=== PATIENT | female | born 1970 | race Caucasian/White ===

== ENCOUNTER 2016-11-27 21:51 | Emergency (ER) | payer OTHER ==
--- NOTE | 2016-11-27 21:56 | PDOC ---
History of Present Illness - General Stated Complaint: CHEST PAIN Time Seen by Provider: 11/27/16 21:53 History Source: Patient Exam Limitations: No Limitations - History of Present Illness Initial Comments: 11/27/16 22:03 This is a 46-year-old female comes in complaining of left-sided neuritic type chest pain. Patient said pain began approximately an hour ago. Patient said that she has an upper respiratory tract infection and has been doing a lot of coughing. Patient said pain is worse with a cough worse with a deep breath. Patient denies any strenuous physiological activity. Patient denies history of similar pain in the past. Patient denies any history of hypertension, high cholesterol diabetes or any other cardiac risk factors with the exception that she does have a family history in both her mother and father's side of the family. Patient also is on control. Patient denies any nausea, diaphoresis or palpitations associated with the pain. PAST MEDICAL HISTORY: no significant history PAST SURGICAL HISTORY: no significant history FAMILY HISTORY: no pertinant history SOCIAL HISTORY: Pt lives with family and is employed. MEDICATIONS: reviewed ALLERGIES: As per nursing notes Review of Systems General: No fevers or chills, no weakness, no weight loss HEENT: No change in vision. No sore throat,. No ear pain CardioVascular: + Chest pain, no shortness of breath Respiratory:No cough, or wheezing. Gastrointestinal: no nausea, vomitting, diarrhea or constipation, No rectal bleeding Genitourinary: No dysuria, hematuria, or frequency Musculoskeletal: No joint or muscle pain or swelling Neurologic: No headache, vertigo, dizziness or loss of consciousness Psychiatric: nor depression Skin: No rashes or easy bruising Endocrine: no increased thirst or abnormal weight change Allergic: no skin or latex allergy All other systems reviewed and normal Exam: General: Well-nourished well-developed individual, no acute distress HEENT: Throat: Normal, tonsils normal, no erythema or exudate Neck: Supple, no meningeal signs, no lymphadenopathy Eyes::Pupils equal reactive and round, extraocular motion intact Chest: Pain is reproduced with palpation Cardiac: S1-S2 normal, regular rate and rhythm, no murmurs rubs or gallops Respiratory: Lungs clear to auscultation bilateral Abdomen: Soft, nondistended, normal bowel sounds, nontender to palpation diffusely Extremities: Warm, dry, no cyanosis, clubbing, or edema Skin: No rashes Neuro: Alert and oriented x3, nonfocal exam, grossly intact, normal gait Psych: Normal mood and affect 11/27/16 22:05 EKG normal sinus rhythm at a rate of 76. Normal intervals no acute ST-T wave changes, normal EKG. 11/27/16 23:15 Chest x-ray no acute disease. Assessment and plan: This is a 46-year-old female comes in with pleuritic type chest pain. Patient has a cough and upper respiratory tract infection. Patient's pain is reproducible on palpation and also reproducible with inspiration. Patient's EKG is normal and her chest x-ray shows no acute disease Patient's d-dimer is negative her troponin is negative and the rest of her labs are normal. Patient's heart scores 2 Patient's pain is most likely secondary to coughing and skeletal muscle in origin or there could also be a costochondritis component to it. Patient discharged home and will follow-up with her primary care doctor. 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) Disorders: No HTN: No Hypercholesterolemia: No Liver Disease: No Seizures: No Thyroid Disease: Yes (borderline) - Surgical History Abdominal Surgery: No Appendectomy: No Cardiac Surgery: No Cholecystectomy: No Lung Surgery: No Neurologic Surgery: No Orthopedic Surgery: No - Psycho/Social/Smoking Cessation Hx Anxiety: No Suicidal Ideation: No Smoking Status: No Smoking History: Never smoked Have you smoked in the past 12 months: No Number of Cigarettes Smoked Daily: 0 Hx Alcohol Use: No Drug/Substance Use Hx: No Substance Use Type: None Hx Substance Use Treatment: No Heart Score/ECG Review - History History: Slightly suspicious - Electrocardiogram EKG: Normal - Age Age: 45-65 - Risk Factors Risk Factors Heart Score: Yes Positive family hx of cardiac disease Based on the list above the patient has:: 1-2 risk factors - Troponin Troponin: </= normal limit - Score Heart Score - Total: 2 ED Treatment Course - LABORATORY CBC & Chemistry Diagram: 11/27/16 22:00 11/27/16 22:00 *DC/Admit/Observation/Transfer Diagnosis at time of Disposition: Pleurodynia - Discharge Dispostion Disposition: HOME Condition at time of disposition: Stable - Patient Instructions Additional Instructions: Your workup was normal including your chest x-ray, EKG and blood work. Your pain is most likely secondary to coughing and skeletal muscle in nature. Take ibuprofen for your pain or Tylenol. Return to the emergency department immediately with ANY new, persistent or worsening symptoms. Continue any medications as previously prescribed by your physician. You should follow up with your primary doctor as soon as possible regarding today's emergency department visit. . Please make sure your doctor reviews the results of your emergency evaluation. Thank you for coming to the Emergency Department today for your care. It was a pleasure to see you today. Please note that your evaluation is INCOMPLETE until you follow-up with your doctor.
[2016-11-27] MEDS ORDERED: KETOROLAC TROMETHAMINE 30 MG/1 ML VIAL IVPUSH ONE (22:05)
[2016-11-27 22:12] VITALS: BP 140/82; PULSE 84; TEMP 97.6; BMI 34.4
[2016-11-27] MEDS ORDERED: KETOROLAC TROMETHAMINE 30 MG/1 ML VIAL ONE (22:15)
[2016-11-27 22:19] LABS: BASOPHIL 1.3 % (0-2.0); EOSINOPHIL 4.4 % (0-4.5); MCH 26.5 pg (25.7-33.7); MCHC 33.5 g/dl (32.0-36.0); MEAN CELL VOLUME 79.3 fl (80-96); MEAN PLT VOLUME 8.9 fl (7.5-11.1); NEUTROPHILS 63.8 % (42.8-82.8); PLATELET COUNT 303 K/MM3 (134-434); RDW 13.6 % (11.6-15.6); WHITE BLOOD COUNT 8.4 K/mm3 (4.0-10.0)
[2016-11-27 22:40] LABS: CREATININE 0.9 mg/dl (0.6-1.3); GLUCOSE,RANDOM 116 mg/dl (74-106)
[2016-11-27 22:41] LABS: ALBUMIN 3.8 g/dl (3.5-5.0); ALK PHOS 72 U/L (32-92); ANION GAP 9 (8-16); BILIRUBIN,TOTAL 0.6 mg/dl (0.2-1.0); CO2 24 mmol/L (22-28); CPK(DFH) 57 IU/L (26-140); SGOT/AST 34 U/L (10-42); SGPT/ALT 33 U/L (10-40); TOT PROT 6.8 g/dl (6.4-8.3)
[2016-11-27 23:11] LABS: TROPONIN I (DFP) < 0.03 ng/ml (0.03-0.50)
--- NOTE | 2016-11-28 12:00 | EKG ---
Test Reason : Blood Pressure : / mmHG Vent. Rate : 076 BPM Atrial Rate : 076 BPM P-R Int : 140 ms QRS Dur : 082 ms QT Int : 410 ms P-R-T Axes : 052 -24 010 degrees QTc Int : 461 ms POOR DATA QUALITY, INTERPRETATION MAY BE ADVERSELY AFFECTED NORMAL SINUS RHYTHM NORMAL ECG WHEN COMPARED WITH ECG OF 15-NOV-2015 21:26, COMPARED TO EKG NO SIGNIFICANT CHANGE IS FOUND Confirmed by QUINN LOYA MD ([id number]) on 11/28/2016 12:00:12 PM Referred By: Confirmed By:QUINN LOYA MD
== END 2016-11-27 23:24 | disposition home or self-care (01) ==
LOC: FER 21:51
PROC: 3E0333Z Introduction of Anti-inflammatory into Peripheral Vein, Percutaneous Approach (ICD-10-PCS; principal; 2016-11-27)
DX: R07.81 Pleurodynia (principal); E07.9 Disorder of thyroid, unspecified; I34.1 Nonrheumatic mitral (valve) prolapse; D64.9 Anemia, unspecified
CPT/HCPCS: 36415; 71010-TC; 80053; 82550; 84484; 84703; 85025; 85379; 93005; 93010; 99282-25

== ENCOUNTER 2017-10-18 00:30 | Emergency (ER) | payer OTHER ==
[2017-10-18 00:37] VITALS: PULSE 74; TEMP 98.4; BMI 32.4
--- NOTE | 2017-10-18 00:39 | PDOC ---
History of Present Illness - General Chief Complaint: Chest Pain Stated Complaint: CHEST PAIN; worried because the pain radiated to the left scapula Time Seen by Provider: 10/18/17 00:39 History Source: Patient Exam Limitations: No Limitations - History of Present Illness Severity: moderate Past History - Travel Traveled outside of the country in the last 30 days: No Close contact w/someone who was outside of country & ill: No - Past Medical History Allergies/Adverse Reactions: Allergies Allergy/AdvReac Type Severity Reaction Status Date / Time No Known Allergies Allergy Verified 11/27/16 21:52 Home Medications: Ambulatory Orders Norethindrone-E.estradiol-Iron [Lo Loestrin Fe 1-10 Tablet] 1 tab PO DAILY 11/16 Anemia: Yes Asthma: No Cancer: No Cardiac Disorders: Yes (mvp) CVA: No COPD: No CHF: No Dementia: No Diabetes: No GI Disorders: Yes (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) Disorders: No HTN: No Hypercholesterolemia: No Liver Disease: No Seizures: No Thyroid Disease: Yes (borderline) - Surgical History Abdominal Surgery: No Appendectomy: No Cardiac Surgery: No Cholecystectomy: No Lung Surgery: No Neurologic Surgery: No Orthopedic Surgery: No - Suicide/Smoking/Psychosocial Hx Smoking Status: No Smoking History: Never smoked Have you smoked in the past 12 months: No Number of Cigarettes Smoked Daily: 0 If you are a former smoker, when did you quit?: 19 YRS AGO Information on smoking cessation initiated: No Hx Alcohol Use: No Drug/Substance Use Hx: No Substance Use Type: None Hx Substance Use Treatment: No Review of Systems - Review of Systems Constitutional: No: Symptoms Reported, See HPI, Chills, Diaphoresis, Fever, Loss of Appetite, Malaise, Night Sweats, Weakness, Weight Stable, Unintentional Wgt. Loss, Unexplained wgt Loss, Other HEENTM: No: Symptoms Reported, See HPI, Eye Pain, Blurred Vision, Tearing, Recent change in vision, Double Vision, Cataracts, Ear Pain, Ocular Prothesis, Ear Discharge, Nose Pain, Nose Congestion, Tinnitus, Nose Bleeding, Hearing Loss , Throat Pain, Throat Swelling, Mouth Pain, Dental Problems, Difficulty Swallowing, Mouth Swelling, Other Respiratory: No: Symptoms reported, See HPI, Cough, Orthopnea, Shortness of Breath, SOB with Exertion, SOB at Rest, Stridor, Wheezing, Productive cough, Hemoptysis, Other Cardiac (ROS): Yes: Chest Pain. No: Symptoms Reported, See HPI, Edema, Irregular Heart Rate, Lightheadedness, Palpitations, Syncope, Chest Tightness, Other ABD/GI: No: Symptoms Reported, See HPI, Abdominal Distended, Abd. Pain w/ defecation, Blood Streaked Bowels, Constipated, Diarrhea, Difficulty Swallowing , Nausea, Poor Appetite, Poor Fluid Intake, Rectal Bleeding, Vomiting, Indigestion, Abdominal cramping, Tarry Stools, Other : No: Symptoms Reported, See HPI, Burning, Dysuria, Discharge, Frequency, Flank Pain, Hematuria, Incontinence, Pain, Urgency, Testicular Mass, Testicular Swelling, Lesions, Testicular Pain, Other Musculoskeletal: No: Symptoms Reported, See HPI, Back Pain, Gout, Joint Pain, Joint Swelling, Muscle Pain, Muscle Weakness, Neck Pain, Joint Stiffness, Other Neurological: No: Symptoms reported, See HPI, Headache, Numbness, Paresthesia, Pre-Existing Deficit, Seizure, Tingling, Tremors, Weakness, Unsteady Gait, Ataxia, Dizziness, Other *Physical Exam - Vital Signs Last Vital Signs Temp Pulse Resp BP Pulse Ox 98.4 F 74 18 129/77 99 10/18/17 00:31 10/18/17 00:31 10/18/17 00:31 10/18/17 00:31 10/18/17 00:31 - Physical Exam General Appearance: Yes: Nourished, Appropriately Dressed, Apparent Distress, Mild Distress HEENT: positive: EOMI, BRANDON, Normal ENT Inspection, Normal Voice, TMs Normal, Pharynx Normal Neck: positive: Trachea midline, Supple Respiratory/Chest: positive: Chest Tender, Lungs Clear, Normal Breath Sounds, Respiratory Distress, Accessory Muscle Use Cardiovascular: positive: Regular Rhythm, Regular Rate, S1, S2 Gastrointestinal/Abdominal: positive: Normal Bowel Sounds, Flat, Soft. negative : Tender Musculoskeletal: positive: Normal Inspection, CVA Tenderness Extremity: positive: Normal Capillary Refill, Normal Inspection, Normal Range of Motion, Pelvis Stable Integumentary: positive: Normal Color, Dry, Warm Neurologic: positive: larriman helper II-XII NML intact, Fully Oriented, Alert, Normal Mood/ Affect, Normal Response, Motor Strength /5 ED Treatment Course - LABORATORY CBC & Chemistry Diagram: 10/18/17 01:00 10/18/17 01:00 Medical Decision Making - Medical Decision Making 10/18/17 01:34 EKG is NSR 10/18/17 05:52 Pt's exam is normal; cxr normal and all labs are normal Pt will be discharged home with PMD follow up *DC/Admit/Observation/Transfer Diagnosis at time of Disposition: Atypical chest pain - Discharge Dispostion Disposition: HOME Condition at time of disposition: Good Admit: No - Referrals - Patient Instructions Printed Discharge Instructions: DI for Atypical Chest Pain - Post Discharge Activity
[2017-10-18 01:37] LABS: BASO % 0.6 % (0-2.0); EOS % 2.5 % (0-4.5); HEMATOCRIT 34.3 % (32.4-45.2); HEMOGLOBIN 11.6 GM/dL (10.7-15.3); LYMPH % 31.6 % (8-40); MCH 26.3 pg (25.7-33.7); MCHC 33.8 g/dl (32.0-36.0); MEAN CELL VOLUME 77.7 fl (80-96); MEAN PLT VOLUME 9.6 fl (7.5-11.1); MONO % 7.5 % (3.8-10.2); NEUT % 57.8 % (42.8-82.8); PLATELET COUNT 231 K/MM3 (134-434); RBC 4.41 M/mm3 (3.60-5.2); RDW 13.8 % (11.6-15.6); WHITE BLOOD COUNT 7.2 K/mm3 (4.0-10.0)
[2017-10-18 01:54] LABS: INR 0.93 (0.82-1.09); PROTHROMBIN TIME (PATIENT) 10.5 SEC (9.98-11.88)
[2017-10-18 02:12] LABS: ALBUMIN 3.1 g/dl (3.4-5.0); ANION GAP 11 (8-16); BILIRUBIN,TOTAL 0.2 mg/dL (0.2-1.0); BLOOD UREA NITROGEN 12 mg/dL (7-18); CALCIUM 8.4 mg/dL (8.5-10.1); CHLORIDE 107 mmol/L (98-107); CO2 23 mmol/L (21-32); CREATININE 0.8 mg/dL (0.55-1.02); GLUCOSE,RANDOM 102 mg/dL (74-106); POTASSIUM 3.7 mmol/L (3.5-5.1); SGOT/AST 20 U/L (15-37); SGPT/ALT 25 U/L (12-78); SODIUM 141 mmol/L (136-145); TOT PROT 6.3 g/dl (6.4-8.2)
[2017-10-18 02:15] LABS: ALK PHOS 82 U/L (45-117)
[2017-10-18 03:10] VITALS: BP 166/72
--- NOTE | 2017-10-24 15:18 | EKG ---
Test Reason : Blood Pressure : / mmHG Vent. Rate : 072 BPM Atrial Rate : 072 BPM P-R Int : 132 ms QRS Dur : 086 ms QT Int : 422 ms P-R-T Axes : 026 -12 000 degrees QTc Int : 462 ms SINUS RHYTHM WITH OCCASIONAL PREMATURE VENTRICULAR COMPLEXES CANNOT RULE OUT ANTERIOR INFARCT , AGE UNDETERMINED ABNORMAL ECG WHEN COMPARED WITH ECG OF 27-NOV-2016 21:53, PREMATURE VENTRICULAR COMPLEXES ARE NOW PRESENT Confirmed by Ventura Loomis MD ([id number]) on 10/24/2017 3:17:55 PM Referred By: Confirmed By:Ventura Loomis MD
== END 2017-10-18 03:10 | disposition home or self-care (01) ==
LOC: FER 00:30
DX: R07.89 Other chest pain (principal); Z87.891 Personal history of nicotine dependence; I34.1 Nonrheumatic mitral (valve) prolapse
CPT/HCPCS: 36415; 71046-TC; 80053; 82550; 84484; 85025; 85610; 93005; 93010; 99283-25

== ENCOUNTER 2022-11-04 10:20 | Emergency (ER) | payer OTHER ==
[2022-11-04 10:40] VITALS: TEMP 97.9; BMI 33.8
[2022-11-04] MEDS ORDERED: ASPIRIN 81 MG CHEWABLE TABLETS PO ONE (11:25)
[2022-11-04] MEDS ORDERED: ASPIRIN 81 MG CHEWABLE TABLETS ONE (11:27)
[2022-11-04 11:49] LABS: INR 0.97 (0.83-1.09); PROTHROMBIN TIME (PATIENT) 11.2 SEC (9.7-13.0)
[2022-11-04 11:52] LABS: ACTIVATED PTT 29.9 SECONDS (25.2-36.5)
[2022-11-04 11:55] LABS: ALBUMIN 3.5 g/dl (3.4-5.0); BILIRUBIN,TOTAL 0.6 mg/dl (0.2-1); CALCIUM 8.6 mg/dl (8.5-10); CREATININE 0.9 mg/dl (0.55-1.3); TOT PROT 6.6 g/dl (6.4-8.2)
[2022-11-04 12:00] LABS: HEMATOCRIT 34.8 % (32.4-45.2); HEMOGLOBIN 12.4 G/dL (10.7-15.3); MCH 28.9 pg (25.7-33.7); MCHC 35.6 g/dl (32.0-36.0); MEAN CELL VOLUME 81.2 fl (80-96); MEAN PLT VOLUME 8.7 fl (7.5-11.1); PLATELET COUNT 270.9 10^3/uL (134-434); RBC 4.29 10^6/uL (3.60-5.2); WHITE BLOOD COUNT 7.3 10^3/uL (4.0-10.8)
[2022-11-04 12:38] LABS: PLATELET ESTIMATE ADEQUATE
[2022-11-04] MEDS ORDERED: LORazepam 2 MG/ML SDV VIAL IVPUSH STA (15:25)
[2022-11-04 16:57] VITALS: BP 113/70; PULSE 63; RESP 16
== END 2022-11-04 18:00 | disposition home or self-care (01) ==
LOC: FER 10:20
PROC: 3E033GC Introduction of Other Therapeutic Substance into Peripheral Vein, Percutaneous Approach (ICD-10-PCS; principal; 2022-11-04)
DX: R07.89 Other chest pain (principal)
CPT/HCPCS: 0241U-QW; 36415; 71046-TC-FY; 71275-TC; 80053; 84484; 85027; 85379; 85610; 85730; 93005; 99285-25; Q9967

== ENCOUNTER 2023-01-04 05:21 | Day surgery (SDC) | payer OTHER ==
[2023-01-02 10:44] VITALS: BMI 33.8
[2023-01-04] MEDS ORDERED: MIDAZOLAM HCL 2 MG/2 ML SINGLE DOSE VIAL ONE (14:16)
[2023-01-04] MEDS ORDERED: PROPOFOL 40 ML ONE (14:17)
[2023-01-04] MEDS ORDERED: DEXAMETHASONE SOD PHOSPHATE 4 MG/1 ML VIAL ONE (14:20)
[2023-01-04] MEDS ORDERED: ONDANSETRON 4 MG/2 ML VIAL ONE (14:20)
[2023-01-04] MEDS ORDERED: LIDOCAINE HCL/PF 2% SDV 5ML VIAL ONE (14:21)
[2023-01-04] MEDS ORDERED: ceFAZolin SODIUM 1 GM VIAL ONE (14:28)
[2023-01-04] MEDS ORDERED: ceFAZolin SODIUM 1 GM VIAL IVPB ONE (14:30)
[2023-01-04] MEDS ORDERED: KETOROLAC TROMETHAMINE 30 MG/1 ML VIAL ONE (14:41)
[2023-01-04] MEDS ORDERED: SEVOFLURANE 250 ML BTL ONE (14:57)
[2023-01-04] MEDS ORDERED: ONDANSETRON 4 MG/2 ML VIAL IVPUSH PRN (15:39)
[2023-01-04] MEDS ORDERED: PROMETHAZINE HCL 25 MG/1 ML VIAL IVPB PRN (15:39)
[2023-01-04] MEDS ORDERED: oxyCODONE HCL 5 MG TABLET PO PRN (15:39)
[2023-01-04] MEDS ORDERED: ACETAMINOPHEN 1000 MG/100 ML BAG IVPB PRN (15:40)
[2023-01-04] MEDS ORDERED: LACTATED RINGERS SOLUTION 1,000 ML IV SCH (15:45)
[2023-01-04] MEDS ORDERED: IBUPROFEN 400 MG TABLET (FP) PO PRN (15:58)
[2023-01-04] MEDS ORDERED: ACETAMINOPHEN 325 MG TABLET (FP) PO PRN (15:58)
[2023-01-04 17:21] VITALS: RESP 16; TEMP 97.7
[2023-01-04 18:03] VITALS: BP 128/74; PULSE 82
== END 2023-01-04 18:00 | disposition home or self-care (01) ==
LOC: JASU-SURG 05:21
PROVIDERS: ATTEND Obstetrics & Gynecology
PROC: 0UBG7ZZ Excision of Vagina, Via Natural or Artificial Opening (ICD-10-PCS; principal; 2023-01-04 14:00)
DX: D28.1 Benign neoplasm of vagina (principal)
CPT/HCPCS: 81025; 88305-TC; 88342-TC; 94760

== ENCOUNTER 2023-10-22 11:01 | Day surgery (SDC) | payer OTHER ==
[2023-10-22 11:09] VITALS: BMI 34.2
[2023-10-22] MEDS ORDERED: ACETAMINOPHEN 1000 MG/100 ML BAG IVPB ONE (11:54)
[2023-10-22] MEDS ORDERED: ACETAMINOPHEN INJECTION 100 ML IVPB ONE (12:21)
[2023-10-22 12:49] LABS: BASO % 0.5 % (0-2.0); EOS % 4.4 % (0-4.5); HEMATOCRIT 36.3 % (32.4-45.2); HEMOGLOBIN 12.2 GM/dL (10.7-15.3); LYMPH % 19.8 % (8-40); MCH 27.7 pg (25.7-33.7); MCHC 33.7 g/dl (32.0-36.0); MEAN CELL VOLUME 82.3 fl (80-96); MEAN PLT VOLUME 8.4 fl (7.5-11.1); NEUT % 68.3 % (42.8-82.8); PLATELET COUNT 282 10^3/uL (134-434); RBC 4.41 M/mm3 (3.60-5.2); RDW 13.5 % (11.6-15.6); WHITE BLOOD COUNT 7.1 K/mm3 (4.0-10.0)
[2023-10-22 12:51] LABS: EPI CELLS 5 /uL (0-25.1); HYALINE CASTS 1 /uL (0-3.1); URINE APPEARANCE TURBID; URINE BACTERIA 0 /uL (0-1359); URINE BILIRUBIN 1+ (NEGATIVE); URINE COLOR RED; URINE GLUCOSE (UA) NEGATIVE (NEGATIVE); URINE KETONE NEGATIVE (NEGATIVE); URINE LEUK ESTERASE TRACE (NEGATIVE); URINE NITRITE NEGATIVE (NEGATIVE); URINE PROTEIN 2+ (NEGATIVE); URINE RBC 32397 /uL (0-23.9); URINE UROBILINOGEN 0.2 mg/dL (0.2-1.0); URINE WBC 16 /uL (0-25.8)
[2023-10-22 12:55] LABS: INR 0.98 (0.83-1.09); PROTHROMBIN TIME (PATIENT) 11.4 SEC (9.7-13.0)
[2023-10-22 13:09] LABS: POTASSIUM 4.2 mmol/L (3.5-5.1)
[2023-10-22 13:11] LABS: ALBUMIN 3.7 g/dl (3.4-5.0); BLOOD UREA NITROGEN 15.8 mg/dL (7-18); CALCIUM 9.6 mg/dL (8.5-10.1)
[2023-10-22] MEDS ORDERED: ALPRAZolam 0.25 MG TABLET PO PRN (13:11)
[2023-10-22] MEDS ORDERED: ACETAMINOPHEN 1000 MG/100 ML BAG IVPB PRN (13:12)
[2023-10-22 13:14] LABS: CREATININE 0.8 mg/dL (0.55-1.3)
[2023-10-22] MEDS ORDERED: LACTATED RINGERS SOLUTION 1,000 ML/1,000 ML INFUS.BAG IV SCH (13:15)
[2023-10-22 13:16] LABS: BILIRUBIN,TOTAL 0.3 mg/dL (0.2-1)
[2023-10-22] MEDS ORDERED: PROPOFOL 40 ML ONE (13:23)
[2023-10-22] MEDS ORDERED: ROCURONIUM BROMIDE 50 MG/5 ML SYRINGE ONE (13:23)
[2023-10-22] MEDS ORDERED: SUCCINYLCHOLINE CHLORIDE 200 MG/10 ML SYRINGE ONE (13:23)
[2023-10-22] MEDS ORDERED: MIDAZOLAM HCL 2 MG/2 ML SINGLE DOSE VIAL ONE (13:24)
[2023-10-22] MEDS ORDERED: ONDANSETRON 4 MG/2 ML VIAL ONE (13:28)
[2023-10-22] MEDS ORDERED: SODIUM CHLORIDE 0.9% P/F 10 ML VIAL IJ ONE (13:28)
[2023-10-22] MEDS ORDERED: DEXAMETHASONE SOD PHOSPHATE 4 MG/1 ML VIAL ONE (13:28)
[2023-10-22] MEDS ORDERED: LIDOCAINE HCL/PF 2% SDV 5ML VIAL ONE (13:28)
[2023-10-22] MEDS ORDERED: ceFAZolin SODIUM 1 GM VIAL IVPB ONE (14:15)
[2023-10-22] MEDS ORDERED: ceFAZolin SODIUM 1 GM VIAL ONE (14:17)
[2023-10-22] MEDS ORDERED: NOREPINEPHRINE BITARTRATE 4 MG/4 ML ML IV ONE (14:28)
[2023-10-22] MEDS ORDERED: SUGAMMADEX SODIUM 200 MG/2 ML VIAL ONE (14:40)
[2023-10-22] MEDS ORDERED: ONDANSETRON 4 MG/2 ML VIAL IVPUSH PRN (14:54)
[2023-10-22] MEDS ORDERED: LACTATED RINGERS SOLUTION 1,000 ML IV SCH (15:00)
[2023-10-22] MEDS ORDERED: IBUPROFEN 400 MG TABLET (FP) PO PRN (15:15)
[2023-10-22] MEDS ORDERED: ACETAMINOPHEN 325 MG TABLET (FP) PO PRN (15:15)
[2023-10-22 16:36] VITALS: RESP 18
[2023-10-22 18:19] VITALS: BP 126/84; PULSE 84; TEMP 98.1
[2023-10-22 18:22] LABS: HEMATOCRIT 36.5 % (32.4-45.2); HEMOGLOBIN 12.3 GM/dL (10.7-15.3); MCH 27.8 pg (25.7-33.7); MCHC 33.6 g/dl (32.0-36.0); MEAN CELL VOLUME 82.8 fl (80-96); MEAN PLT VOLUME 8.6 fl (7.5-11.1); PLATELET COUNT 287 10^3/uL (134-434); RBC 4.41 M/mm3 (3.60-5.2); RDW 13.5 % (11.6-15.6); WHITE BLOOD COUNT 10.9 K/mm3 (4.0-10.0)
[2023-10-23] MEDS ORDERED: FERROUS SO4 325 MG TABLET (FP) PO SCH (10:00)
[2023-10-23] MEDS ORDERED: VALSARTAN 160 MG TABLET PO SCH (10:00)
== END 2023-10-22 19:15 | disposition home or self-care (01) ==
LOC: JER 11:01 → JERBED 12:52 → UNDOADMIN 12:52 → JASUSAT 13:12 → J3W 16:10 → JASUSAT 19:15
PROVIDERS: ATTEND Internal Medicine
PROC: 0UDB7ZZ Extraction of Endometrium, Via Natural or Artificial Opening (ICD-10-PCS; principal; 2023-10-22 13:29)
DX: N93.9 Abnormal uterine and vaginal bleeding, unspecified (principal)
CPT/HCPCS: 0241U-QW; 36415; 80053; 81003; 85025; 85027; 85610; 85730; 86850; 86900; 86901; 86922; 87086; 88305-TC; 94760; 99285-25

== ENCOUNTER 2024-02-02 10:48 | Emergency (ER) | payer OTHER ==
[2024-02-02] MEDS ORDERED: METHOCARBAMOL 500 MG TABLET ONE (11:08)
[2024-02-02] MEDS ORDERED: KETOROLAC TROMETHAMINE 60 MG/2 ML VIAL ONE (11:08)
[2024-02-02] MEDS: METHOCARBAMOL 750 MG TABLET PO STA (11:18)
[2024-02-02] MEDS: KETOROLAC TROMETHAMINE 30 MG/1 ML VIAL IM ONE (11:18)
[2024-02-02 11:31] VITALS: BP 121/75; PULSE 81; RESP 18; TEMP 98.5; BMI 34.4
== END 2024-02-02 12:39 | disposition home or self-care (01) ==
LOC: FER 10:48
PROC: 3E0233Z Introduction of Anti-inflammatory into Muscle, Percutaneous Approach (ICD-10-PCS; principal; 2024-02-02)
DX: M54.50 Low back pain, unspecified (principal); G57.02 Lesion of sciatic nerve, left lower limb
CPT/HCPCS: 99284-25

== ENCOUNTER → 2024-12-10 | Day surgery (SDC) | payer OTHER | END | disposition home or self-care (01) | LOC: FMAMMOTONE 10:13 | PROVIDERS: ATTEND Obstetrics & Gynecology | PROC: 0HBT3ZX Excision of Right Breast, Percutaneous Approach, Diagnostic (ICD-10-PCS; principal; 2024-12-10) | DX: D24.1 Benign neoplasm of right breast (principal); N63.11 Unspecified lump in the right breast, upper outer quadrant | CPT/HCPCS: 19081; 76098-TC-FY; 87899; 88305-TC; 88341-TC; 88342-TC; A4648 ==